=== PATIENT | male | born 1975 | race Native Hawaiian/Other Pacific Islander ===

== ENCOUNTER 2018-07-05 15:41 | Emergency (ER) | payer BC ==
[~2018-07-05] VITALS: Ht 182.9 cm; Wt 102.1 kg
[2018-07-05 15:48] VITALS: TEMP 97.7
[2018-07-05 16:40] VITALS: BP 132/78
== END 2018-07-05 16:40 | disposition home or self-care (01) ==
LOC: EDBD 15:41 → ED 15:41
PROC: 0HQFXZZ Repair Right Hand Skin, External Approach (ICD-10-PCS; principal; 2018-07-05)
DX: S61.411A Laceration without foreign body of right hand, initial encounter (principal); W26.8XXA Contact with other sharp object(s), not elsewhere classified, initial encounter; Y93.89 Activity, other specified; Y92.89 Other specified places as the place of occurrence of the external cause
CPT/HCPCS: 90471; 90715; 99283